=== PATIENT | male | born 1955 | race Caucasian/White ===

== ENCOUNTER 2018-04-22 22:58 | Emergency (ER) | payer SELFPAY ==
[2018-04-23] MEDS ORDERED: NA CHLORIDE 0.9% 1,000 ML ONE (02:56)
[2018-04-23 03:10] LABS: Absolute Lymphocytes (CBC) 3.1 K/uL (0.7-4.9); Absolute Monocytes 0.8 K/uL (0.1-1.3); Absolute Neutrophil 5.2 K/uL (1.8-8.0); Basophils % 0.6 % (0-1.3); Eosinophils % 1.6 % (0-4.4); Hematocrit 46.5 % (39.6-49.0); Lymphocytes % 33.2 % (15.3-44.8); MPV 9.4 fL (7.6-11.3); Monocytes % 8.3 % (3.3-12.3); RBC Red Blood Cell Count 5.26 M/uL (4.33-5.43)
[2018-04-23 03:18] LABS: Protime INR 1.17
[2018-04-23 03:24] LABS: ALT/SGPT 29 U/L (12-78); AST/SGOT 17 U/L (15-37); Albumin 4.5 g/dL (3.4-5.0); Alkaline Phosphatase 78 U/L (45-117); BUN Blood Urea Nitrogen 16 mg/dL (7-18); Bicarbonate 28 mmol/L (21-32); Bilirubin Direct 0.5 mg/dL (0-0.2); Bilirubin Total 4.3 mg/dL (0.2-1.0); Glucose Level 105 mg/dL (74-106); Magnesium 1.9 mg/dL (1.8-2.4); NT PRO-BNP 9 pg/mL (<125); Potassium 3.9 mmol/L (3.5-5.1); Sodium Level 136 mmol/L (136-145); Troponin (Emerg Dept Use Only) < 0.02 ng/mL (0.0-0.045)
--- NOTE | 2018-04-23 04:25 | EDPHYS ---
Physician Documentation [facility] Name: Vipin Phillip Age: 62 yrs Sex: Male : 1955 Arrival Date: 04/22/2018 Time: 22:59 Bed 6 Private MD: BELLO CARD ED Physician Chema Marques HPI: 04/23 04:21 This 62 yrs old Male presents to ER via Ambulatory with complaints of gs Dizziness, Doesn't Feel Right, Blood Pressure Problem. 04:21 The patient presents with dizziness, lightheadedness. Onset: The symptoms/episode gs began/occurred 2 day(s) ago. Modifying factors: the symptoms are aggravated by standing up, changing position. Associated signs and symptoms: Pertinent negatives: abdominal pain, agitation, chest pain, diaphoresis, shortness of breath. Severity of symptoms: At their worst the symptoms were severe in the emergency department the symptoms have resolved. The patient has experienced similar episodes in the past, a few times. The patient has not recently seen a physician, recently restarted bp meds. Historical: - Allergies: 04/22 23:37 NKDA; bb - Home Meds: 23:37 lisinopril-hydrochlorothiazide 20-12.5 mg oral tab 1 tab once daily [Active]; bb - PMHx: 23:31 Hypertension; bb - PSHx: 23:31 None; bb - Immunization history:: Adult Immunizations unknown. - Social history:: Smoking status: Patient/guardian denies using tobacco, Patient/guardian denies using alcohol, street drugs. - Ebola Screening: : No symptoms or risks identified at this time. ROS: 04/23 04:21 All other systems are negative. gs Exam: 04:21 Head/Face: Normocephalic, atraumatic. Eyes: Pupils equal round and reactive to light, gs extra-ocular motions intact. Lids and lashes normal. Conjunctiva and sclera are non-icteric and not injected. Cornea within normal limits. Periorbital areas with no swelling, redness, or edema. ENT: Nares patent. No nasal discharge, no septal abnormalities noted. Tympanic membranes are normal and external auditory canals are clear. Oropharynx with no redness, swelling, or masses, exudates, or evidence of obstruction, uvula midline. Mucous membranes moist. Neck: Trachea midline, no thyromegaly or masses palpated, and no cervical lymphadenopathy. Supple, full range of motion without nuchal rigidity, or vertebral point tenderness. No Meningismus. Chest/axilla: Normal chest wall appearance and motion. Nontender with no deformity. No lesions are appreciated. Cardiovascular: Regular rate and rhythm with a normal S1 and S2. No gallops, murmurs, or rubs. Normal PMI, no JVD. No pulse deficits. Respiratory: Lungs have equal breath sounds bilaterally, clear to auscultation and percussion. No rales, rhonchi or wheezes noted. No increased work of breathing, no retractions or nasal flaring. Abdomen/GI: Soft, non-tender, with normal bowel sounds. No distension or tympany. No guarding or rebound. No evidence of tenderness throughout. Back: No spinal tenderness. No costovertebral tenderness. Full range of motion. Skin: Warm, dry with normal turgor. Normal color with no rashes, no lesions, and no evidence of cellulitis. MS/ Extremity: Pulses equal, no cyanosis. Neurovascular intact. Full, normal range of motion. 04:21 Constitutional: The patient appears alert, awake. 04:21 Neuro: Orientation: is normal, Mentation: is normal, Cranial nerves: CN II- XII are normal as tested, Cerebellar function: normal finger to nose testing, Motor: is normal, Sensation: is normal, Gait: is steady. Vital Signs: 04/22 23:31 BP 123 / 106; Pulse 103; Resp 16 S; Temp 98.1(O); Pulse Ox 93% on R/A; Weight 95.25 kg bb (R); Height 5 ft. 9 in. (175.26 cm) (R); Pain 0/10; 04/23 01:23 BP 123 / 95; Pulse 89; Resp 18 S; Pulse Ox 100% on R/A; jd3 02:25 BP 115 / 83 Supine; Pulse 79; ea 02:27 BP 98 / 85 Sitting; Pulse 91; ea 02:28 BP 107 / 80 Standing; Pulse 70; ea 04:03 BP 120 / 84; Pulse 76; Resp 17 S; Pulse Ox 98% on R/A; jd3 04/22 23:31 Body Mass Index 31.01 (95.25 kg, 175.26 cm) MDM: 02:05 Patient medically screened. 04:21 Differential diagnosis: cardiac arrhythmia, CVA, vertigo, medication effect. Data reviewed: vital signs, nurses notes, lab test result(s), EKG, radiologic studies. Counseling: I had a detailed discussion with the patient and/or guardian regarding: the historical points, exam findings, and any diagnostic results supporting the discharge/admit diagnosis, lab results, radiology results, the need for outpatient follow up. Response to treatment: the patient's symptoms have resolved after treatment, the patient's condition has returned to base line, and as a result, I will discharge patient. 04/23 02:15 Order name: Basic Metabolic Panel; Complete Time: 03:28 04/23 02:15 Order name: CBC with Diff; Complete Time: :28 04/23 02:15 Order name: LFT's; Complete Time: 03:28 04/23 02:15 Order name: Magnesium; Complete Time: 03:28 04/23 02:15 Order name: NT PRO-BNP; Complete Time: 03:28 04/23 02:15 Order name: PT-INR; Complete Time: 03:28 04/23 02:15 Order name: Orthostatic Blood Pressure; Complete Time: 02:45 04/23 02:15 Order name: Troponin (emerg Dept Use Only); Complete Time: 03:28 04/23 02:15 Order name: XRAY Chest (1 view) 04/23 02:15 Order name: EKG; Complete Time: 02:16 04/23 02:15 Order name: Cardiac monitoring; Complete Time: 02:45 04/23 02:15 Order name: EKG - Nurse/Tech; Complete Time: 02:45 04/23 02:15 Order name: CT Head Brain wo Cont 04/23 02:15 Order name: IV Saline Lock; Complete Time: 02:45 04/23 02:15 Order name: Labs collected and sent; Complete Time: 02:45 04/23 02:15 Order name: O2 Per Protocol; Complete Time: 02:45 04/23 02:15 Order name: O2 Sat Monitoring; Complete Time: 02:45 gs Administered Medications: 02:58 Drug: NS 0.9% 1000 ml Route: IV; Rate: 1 bolus; Site: right antecubital; ea 04:02 Follow up: Response: No adverse reaction; IV Status: Completed infusion; IV Intake: ea 1000ml Disposition: 04/23/18 04:25 Discharged to Home. Impression: Benign paroxysmal vertigo. - Condition is Stable. - Discharge Instructions: Benign Positional Vertigo. - Prescriptions for Benadryl 25 mg Oral Capsule - take 1 capsule by ORAL route every 8 hours As needed; 30 tablet. - Medication Reconciliation Form, Thank You Letter, Antibiotic Education, Prescription Opioid Use form. - Follow up: Private Physician; When: 2 - 3 days; Reason: Re-evaluation by your physician. - Notes: take half dosage of your blood pressure meds until you see you doctor Signatures: Dispatcher [employer] EDMelony Bro RN RN Kayleen To RN Chema Goins ea, MD MD gs Davies, Jonathon, RN RN jd3 Corrections: (The following items were deleted from the chart) 04/22 23:37 23:31 Allergies: No Known Allergies; [facility] 23:37 23:31 Home Meds: HTN med; [facility] 04/23 04:36 04:25 04/23/2018 04:25 Discharged to Home. Impression: Benign paroxysmal vertigo. jd3 Condition is Stable. Forms are Medication Reconciliation Form, Thank You Letter, Antibiotic Education, Prescription Opioid Use. Follow up: Private Physician; When: 2 - 3 days; Reason: Re-evaluation by your physician. disha
--- NOTE | 2018-04-23 04:25 | ER ---
Nurse's Notes [facility] Name: Vipin Phillip Age: 62 yrs Sex: Male : 1955 Arrival Date: 04/22/2018 Time: 22:59 Bed 6 Private MD: BELLO CARD Diagnosis: Benign paroxysmal vertigo Presentation: 04/22 23:28 Presenting complaint: Patient states: he started having episodes of feeling dizzy since bb night he has been checking his blood pressure and it has been okay he has had to crawl to the bedroom the episodes last about 10 minutes then tonight it lasted for about an hour after which he got up and got into bed. Transition of care: patient was not received from another setting of care. Onset of symptoms was April 19, 2018. Risk Assessment: Do you want to hurt yourself or someone else? Patient reports no desire to harm self or others. Initial Sepsis Screen: Does the patient meet any 2 criteria? No. Patient's initial sepsis screen is negative. Does the patient have a suspected source of infection? No. Patient's initial sepsis screen is negative. Care prior to arrival: None. 23:28 Method Of Arrival: Ambulatory 23:28 Acuity: JUAN ANTONIO 3 bb Historical: - Allergies: 23:37 NKDA; bb - Home Meds: 23:37 lisinopril-hydrochlorothiazide 20-12.5 mg oral tab 1 tab once daily [Active]; bb - PMHx: 23:31 Hypertension; bb - PSHx: 23:31 None; bb - Immunization history:: Adult Immunizations unknown. - Social history:: Smoking status: Patient/guardian denies using tobacco, Patient/guardian denies using alcohol, street drugs. - Ebola Screening: : No symptoms or risks identified at this time. Screenin/18 01:22 Abuse screen: Denies threats or abuse. Nutritional screening: No deficits noted. jd3 Tuberculosis screening: No symptoms or risk factors identified. Fall Risk Ambulatory Aid- None/Bed Rest/Nurse Assist (0 pts). Gait- Weak (10 pts.). Mental Status- Oriented to own ability (0 pts). Total Deleon Fall Scale indicates No Risk (0-24 pts). Assessment: 01:20 General: Appears in no apparent distress. uncomfortable, Behavior is calm, cooperative, jd3 appropriate for age. Pain: Denies pain. Neuro: Level of Consciousness is awake, alert, obeys commands, Oriented to person, place, time, situation, Appropriate for age Reports blurred vision dizziness, numbness in upper lip. Cardiovascular: Heart tones present Capillary refill < 3 seconds Patient's skin is warm and dry. Respiratory: Airway is patent Respiratory effort is even, unlabored, Respiratory pattern is regular, symmetrical, Breath sounds are clear bilaterally. GI: No signs and/or symptoms were reported involving the gastrointestinal system. : No signs and/or symptoms were reported regarding the genitourinary system. EENT: No signs and/or symptoms were reported regarding the EENT system. Derm: Skin is intact, Skin is dry, Skin is normal, Skin temperature is warm. Musculoskeletal: Circulation, motion, and sensation intact. Range of motion: intact in all extremities. 02:30 Reassessment: Patient appears in no apparent distress at this time. Patient and/or jd3 family updated on plan of care and expected duration. Pain level reassessed. Patient is alert, oriented x 3, equal unlabored respirations, skin warm/dry/pink. 03:15 Reassessment: Patient appears in no apparent distress at this time. Patient and/or jd3 family updated on plan of care and expected duration. Pain level reassessed. Patient is alert, oriented x 3, equal unlabored respirations, skin warm/dry/pink. Patient states feeling better. 04:01 Reassessment: Patient and/or family updated on plan of care and expected duration. Pain ea level reassessed. Patient is alert, oriented x 3, equal unlabored respirations, skin warm/dry/pink. Vital Signs: 04/22 23:31 BP 123 / 106; Pulse 103; Resp 16 S; Temp 98.1(O); Pulse Ox 93% on R/A; Weight 95.25 kg bb (R); Height 5 ft. 9 in. (175.26 cm) (R); Pain 0/10; 04/23 01:23 BP 123 / 95; Pulse 89; Resp 18 S; Pulse Ox 100% on R/A; jd3 02:25 BP 115 / 83 Supine; Pulse 79; ea 02:27 BP 98 / 85 Sitting; Pulse 91; ea 02:28 BP 107 / 80 Standing; Pulse 70; ea 04:03 BP 120 / 84; Pulse 76; Resp 17 S; Pulse Ox 98% on R/A; jd3 04/22 23:31 Body Mass Index 31.01 (95.25 kg, 175.26 cm) bb ED Course: 04/22 22:59 Patient arrived in ED. am2 23:00 EDUAR CARD is Private Physician. am2 23:00 EDUAR CARD is Private Physician. am2 23:01 BELLO CARD is Private Physician. am2 23:30 Triage completed. bb 23:31 Arm band placed on Patient placed in waiting room, Patient notified of wait time. bb Family accompanied patient. 04/23 01:15 Luciano Del Angel, SHARRI is Primary Nurse. jd3 01:23 Patient has correct armband on for positive identification. Placed in gown. Bed in low jd3 position. Call light in reach. Side rails up X 1. Adult w/ patient. 01:59 Chema Marques MD is Attending Physician. gs 02:26 X-ray completed. Portable x-ray completed in exam room. Patient tolerated procedure kw well. 02:27 XRAY Chest (1 view) In Process Unspecified. EDMS 02:41 Radiology exam delayed due to Patient having EKG done at this time. kw1 02:45 Inserted saline lock: 20 gauge in right antecubital area, using aseptic technique. ea Blood collected. 02:[address] via wheelchair. kw1 02:54 CT completed. Patient tolerated procedure well. Patient moved back from CT. kw1 03:00 CT Head Brain wo Cont In Process Unspecified. EDMS 04:36 No provider procedures requiring assistance completed. IV discontinued, intact, jd3 bleeding controlled, No redness/swelling at site. Pressure dressing applied. Administered Medications: 02:58 Drug: NS 0.9% 1000 ml Route: IV; Rate: 1 bolus; Site: right antecubital; ea 04:02 Follow up: Response: No adverse reaction; IV Status: Completed infusion; IV Intake: ea 1000ml Intake: 04:02 IV: 1000ml; Total: 1000ml. ea Outcome: 04:25 Discharge ordered by . gs 04:36 Discharged to home ambulatory, with family. jd3 04:36 Condition: stable 04:36 Discharge instructions given to patient, Instructed on discharge instructions, follow up and referral plans. medication usage, Demonstrated understanding of instructions, follow-up care, medications. 04:36 Patient left the ED. jd3 Signatures: Dispatcher [employer] EDMS Melony Burrell RN RN bb Whitley, Kimberlee kw Moreno, Amanda am2 Kayleen Arguelles RN RN ea Starr, Gregory, MD MD gs Davies, Jonathon, RN RN jd3 Wilhelm, Kimberly [facility] Corrections: (The following items were deleted from the chart) 04/22 23:37 23:31 Allergies: No Known Allergies; bridget gill 23:37 23:31 Home Meds: HTN med; bridget gill 03 04:04 04:03 BP 120 / 84; Pulse 76bpm; Resp 17bpm; Spontaneous; Pulse Ox 100% RA; jd3 jd3 04:55 03:15 Reassessment: Patient appears in no apparent distress at this time. Patient jd3 and/or family updated on plan of care and expected duration. Pain level reassessed. Patient is alert, oriented x 3, equal unlabored respirations, skin warm/dry/pink. jd3
[2018-04-23 04:49] VITALS: TEMP 98.1
[2018-04-23 04:54] VITALS: BP 120/84; O2SAT 98
--- NOTE | 2018-04-23 07:28 | EKG ---
Test Date: 2018-04-23 Test Time: 02:40:46 It Help Desk Associate: MERRILL MEASUREMENT RESULTS: Intervals: Rate: 80 NV: 182 QRSD: 84 QT: 362 QTc: 417 [place]: P: 20 NV: 182 QRS: -25 T: -8 INTERPRETIVE STATEMENTS: Sinus rhythm with premature atrial complexes Minimal voltage criteria for LVH, may be normal variant Borderline ECG No previous ECG available for comparison Electronically Signed On 04-23-18 07:27:33 CDT by Wade Brumfield
--- NOTE | 2018-04-23 08:45 | RAD REPORT ---
EXAM DESCRIPTION: [place] Single View04/23/2018 2:29 am CLINICAL HISTORY: Hypertension COMPARISON: none FINDINGS: The lungs appear clear of acute infiltrate. The heart is normal size IMPRESSION: No acute abnormalities displayed
--- NOTE | 2018-04-23 11:57 | RAD REPORT ---
EXAM DESCRIPTION: CT - Head Brain Wo Cont - 04/23/2018 3:13 am CLINICAL HISTORY: The patient is 62 years old and is Male; DIZZINESS TECHNIQUE: Axial computed tomography images of the head/brain without intravenous contrast. Sagitt al and coronal reformatted images were created and reviewed. This CT exam was performed using one o r more of the following dose reduction techniques: automated exposure control, adjustment of the mA and/or kV according to patient size, and/or use of iterative reconstruction technique. COMPARISON: No relevant prior studies available. FINDINGS: BRAIN: There is diffuse cerebral atrophy present, consistent with this patient's age. The cota-white differentiation is maintained. No intracranial hemorrhage, mass effect, or midline vijay ft. There are no extra-axial fluid collections. VENTRICLES: There is diffuse prominence of the ventricles, which is likely related to central at rophy. BONES/JOINTS: No acute fracture. SOFT TISSUES: Unremarkable. SINUSES: Unremarkable as visualized. No acute sinusitis. MASTOID AIR CELLS: Unremarkable as visualized. No mastoid effusion. IMPRESSION: No acute intracranial findings. Electronically signed by: Katina Perkins MD 04/23/2018 3:03 AM CDT Due to temporary technical issues with the PACS/Fluency reporting system, reports are being signed by the in house radiologist as a courtesy to ensure prompt reporting. The interpreting radiologist is darwin mcconnell responsible for the content of the report.
== END 2018-04-23 04:36 | disposition home or self-care (01) ==
LOC: ER 22:58
DX: H81.10 Benign paroxysmal vertigo, unspecified ear (principal); I10 Essential (primary) hypertension
CPT/HCPCS: 36415; 70450; 71045; 80048; 80076; 83735; 83880; 84484; 85025; 85610; 93005; 96360; 99284; J7030